=== PATIENT | female | born 1965 | race African-American/Black ===

== ENCOUNTER 2017-11-24 22:29 | Emergency (ER) | payer BC ==
[~2017-11-24] VITALS: Ht 157.5 cm; Wt 100.6 kg
[2017-11-24 22:35] VITALS: BP 132/72
[2017-11-24] MEDS ORDERED: BISO1TAB7 PO (23:18)
[2017-11-24] MEDS ORDERED: AMLO2.5T PO (23:18)
[2017-11-24] MEDS ORDERED: POTA10TA10 PO (23:18)
[2017-11-24] MEDS ORDERED: MULT-245 PO (23:18)
--- NOTE | 2017-11-24 23:18 | PHYS DOC ---
Adult General Chief Complaint Chief Complaint: INSECT BITE HPI HPI Patient is a 52-year-old female present with a apparent chief complaint of swelling to the right index finger she does not recall any trauma she was worried about a spider bite. She does not recall a specific bite Review of Systems Review of Systems Negative for fever Physical Exam Physical Exam Constitutional: Well developed, well nourished, no acute distress, non-toxic appearance. [] HENT: Normocephalic, atraumatic, bilateral external ears normal, oropharynx moist, no oral exudates, nose normal. [] Eyes: PERRLA, EOMI, conjunctiva normal, no discharge. [] Normal effort no increased work of breathing Abdomen: Bowel sounds normal, soft, no tenderness, no masses, no pulsatile masses. [] Skin: Warm, dry, no erythema, no rash. [] Back: No tenderness, no CVA tenderness. [] Extremities: The affected finger the right index finger there is some mild tenderness on her aspect in between the MCP and PIP but really there is minimal swelling no erythema no induration the exam is very mild swelling maybe almost unremarkable full range motion of the fingers noted Neurologic: Alert and oriented X 3, normal motor function, normal sensory function, no focal deficits noted. []Patient is somewhat sleepy but easily arousable and answering questions overall appropriately Psychologic: Affect normal, judgement normal, mood normal. [] EKG EKG [] Radiology/Procedures Radiology/Procedures [] Course & Med Decision Making Course & Med Decision Making Pertinent Labs and Imaging studies reviewed. (See chart for details) []Complaint of right finger swelling exam shows maybe minimal swelling perhaps she has some mild tendinitis she does not recall any trauma there is no evidence of infection patient was reassured and advised to look out for any abnormal findings into follow up as needed should this occur Dragon Disclaimer Dragon Disclaimer This electronic medical record was generated, in whole or in part, using a voice recognition dictation system. Departure Departure: Impression: Primary Impression: Finger swelling Disposition: 01 HOME, SELF-CARE Condition: STABLE Patient Instructions: Finger Sprain MELANIA CASTELAN MD Nov 24, 2017 23:18
== END 2017-11-24 23:22 | disposition home or self-care (01) ==
LOC: ER 22:29
DX: R22.31 Localized swelling, mass and lump, right upper limb (principal); M79.89 Other specified soft tissue disorders
CPT/HCPCS: 99281

== ENCOUNTER 2019-11-28 12:05 | Emergency (ER) | payer BC, OTHER ==
[~2019-11-28] VITALS: Ht 157.5 cm; Wt 110.0 kg
[~2019-11-28 12:05] MED LIST: AMLO2.5T5 PO; BISO1TAB8 PO; MULT-245 PO; POTA10TA10 PO
[2019-11-28 12:15] VITALS: BP 124/79
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
[2019-11-28] MEDS ORDERED: ERYTHROMYCIN 0.5% OPHTH OINTMENT 1GM TUBE. OU ONE (12:30)
[2019-11-28] MEDS ORDERED: TETRACAINE 0.5% OPHTH SOLUTION 4ML BOTTLE. OU ONE (12:30)
[2019-11-28] MEDS ORDERED: FLUORESCEIN 1MG EYE STRIP. OU ONE (12:30)
[2019-11-28] MEDS ORDERED: ERYT1OIN6 OP (12:54)
== END 2019-11-28 12:59 | disposition home or self-care (01) ==
LOC: ER 12:05
DX: H10.213 Acute toxic conjunctivitis, bilateral (principal); E78.00 Pure hypercholesterolemia, unspecified; I10 Essential (primary) hypertension; Z88.8 Allergy status to other drugs, medicaments and biological substances; Z88.6 Allergy status to analgesic agent
CPT/HCPCS: 99284; 99285